=== PATIENT | female | born 1990 | race American Indian/Alaskan Native ===

== ENCOUNTER 2018-03-06 18:35 | Outpatient (CLI) | payer MEDICAID ==
[2018-03-06 19:31] LABS: Bilirubin,Urine NEG (Negative); Blood,Urine NEG (Negative); Color,Urine Yellow (Yellow); Mucus,Urine FEW /HPF; Urobilinogen,Urine < 2.0 mg/dL (<2.0)
[2018-03-06] MEDS ORDERED: LACTATED RINGERS 500 ML IV ONE (20:00)
[2018-03-06 20:25] VITALS: BP 112/71
--- NOTE | 2018-03-06 20:51 | Ultrasound Report ---
FINAL REPORT PROCEDURE: US OB LIMITED TECHNIQUE: Real-time limited sonographic examination was performed for evaluation of amniotic fluid index for each fetus with image documentation (1 or more fetuses). CPT 65490 HISTORY: back pain COMPARISON: No prior studies are available for comparison. FINDINGS: A single intrauterine gestation is identified with a heart rate of 126 beats per minute. Placenta is fundal and grade 1. Presentation is cephalic. There is decreased the amount of amniotic fluid with the amniotic fluid index measuring at 6.6 centimeters with the largest pocket measuring 3.4 centimeters located in the left upper quadrant. IMPRESSION: Single live intrauterine gestation with decreased amniotic fluid index of 6.6 centimeters.
--- NOTE | 2018-03-06 20:54 | Ultrasound Report ---
FINAL REPORT PROCEDURE: US OB BPP WO NON-STRESS TECHNIQUE: Sonographic evaluation for breathing, movement, tone, and amniotic fluid volume was performed. CPT 61587 HISTORY: back pain COMPARISON: No prior studies are available for comparison. FINDINGS: Amniotic fluid volume: Normal-score 2. At least one vertical pocket > 2 cm or more in vertical axis. breathing: Normal-score 2. movement: Normal-score 2. tone: Normal. Score: 8 of 8. IMPRESSION: Normal biophysical profile.
== END 2018-03-06 20:50 | disposition home or self-care (01) ==
LOC: TRG 18:35
PROVIDERS: ATTEND Obstetrics & Gynecology
DX: O47.03 False labor before 37 completed weeks of gestation, third trimester (principal); O26.893 Other specified pregnancy related conditions, third trimester; M54.9 Dorsalgia, unspecified; Z3A.33 33 weeks gestation of pregnancy
CPT/HCPCS: 76815; 76819; 81001

== ENCOUNTER 2020-01-06 11:15 | Emergency (ER) | payer SELFPAY ==
[2020-01-06 11:24] VITALS: BP 142/94
--- NOTE | 2020-01-06 11:31 | Emergency Department Report ---
Chief Complaint: Medical Clearance Stated Complaint: NO CYCLE SINCE 11/16/2019 Time Seen by Provider: 01/06/20 11:25 - HPI History of Present Illness: Ms. Rush missed her last month menstrual cycle. Has tubal ligation. LMP 11/18/2019. No abdominal pain. Negative home UPT 3 weeks ago. Symptom free otherwise. Recommended repeat home test. Referred to outside clinic. MSE performed and completed. Extensive verbal education provided. - Exam Vital Signs: Vital Signs 01/06/20 11:20 Temperature 99.2 F Pulse Rate 75 Respiratory 18 Rate Blood Pressure 142/94 O2 Sat by Pulse 100 Oximetry MSE screening note: Focused history and physical exam performed. Due to findings the following was ordered: ED Disposition for MSE Clinical Impression: DUB (dysfunctional uterine bleeding) Disposition: MED SCREENING EXAM-LEFT Condition: Stable Referrals: [facility] [Outside] - 3-5 Days
== END 2020-01-06 11:56 | disposition left against medical advice (07) ==
LOC: ED 11:15
DX: N93.8 Other specified abnormal uterine and vaginal bleeding (principal)
CPT/HCPCS: 99281